=== PATIENT | female | born 1955 | race Caucasian/White ===

== ENCOUNTER 2023-02-10 21:21 | Emergency (ER) | payer MEDICARE, MEDICAID ==
[~2023-02-10] VITALS: Ht 157 cm; Wt 74.8 kg
--- NOTE | 2023-02-10 21:29 | ED General ---
General Stated Complaint: OVERDOSE History of Present Illness Date Seen by Provider: Feb 10, 2023 Time Seen by Provider: 21:24 Initial Comments 68 yr F with PMH of meth addiction/ drug induced Parkinson/ early dementia/ is brought in by EMS for a suspected drug overdose. Pt states she took 3 bottles of pills. Pt's reason is that she got in a fight with her son, and her son told her she cannot see her grand kids any longer, and she states that she does not want to live if she can't see her grandkids. Denies abdominal pain, chest pain, shortness of breath, dizziness, blurry vision, palpitations, diarrhea. Patient is able to answer all questions and follow all commands in the ER. I spoke with pt's son, Asad Trujillo, who reports all her PMH and states she is a meth addict and she has been delusional lately and has bizarre behavior, and refuses to get help and won't allow him to take her to see a psychiatrist or PCP. Son reports he has tried to help her but she refuses help, and he states she always does things for attention. Some states that his mother's house is overrun with cockroaches and is in a state of disarray and very dirty. For all these reasons he does not want his children to go to her house, until she receives help and cleans her home, and stopped using meth. (MARICRUZ SOLORIO MD) Allergies and Home Medications Allergies Coded Allergies: No Known Drug Allergies (Unverified , 02/10/23) Patient Home Medication List Home Medication List Reviewed: Yes (MARICRUZ SOLORIO MD) Review of Systems Review of Systems Constitutional: see HPI EENTM: no symptoms reported Respiratory: no symptoms reported Cardiovascular: no symptoms reported Gastrointestinal: no symptoms reported Genitourinary: no symptoms reported Musculoskeletal: no symptoms reported Skin: no symptoms reported Psychiatric/Neurological: See HPI, Emotional Problems Hematologic/Lymphatic: No Symptoms Reported Immunological/Allergic: no symptoms reported (MARICRUZ SOLORIO MD) Physical Exam Vital Signs Vital Signs - First Documented 02/10/23 02/11/23 21:21 00:10 Temp 37.0 Pulse 91 Resp 21 B/P (MAP) 155/96 (115) Pulse Ox 95 O2 Delivery Room Air O2 Flow Rate 2.00 (QUANG ASIF MD) Vital Signs Capillary Refill : (MARICRUZ SOLORIO MD) Height, Weight, BMI Height: '" Weight: lbs. oz. kg; BMI Method: General Appearance: No Apparent Distress, WD/WN, Other (Attention-seeking) HEENT: PERRL/EOMI, Normal ENT Inspection, Pharynx Normal Neck: Full Range of Motion Respiratory: Chest Non Tender, Lungs Clear, Normal Breath Sounds, No Accessory Muscle Use, No Respiratory Distress Cardiovascular: Regular Rate, Rhythm, No Edema Gastrointestinal: Normal Bowel Sounds, Non Tender, Soft Extremity: Normal Range of Motion Neurologic/Psychiatric: Alert, Oriented x3, No Motor/Sensory Deficits, Depressed Affect, Other (Suicidal ideation and patient keeps saying she wants to . Attention seeking) Skin: Normal Color (MARICRUZ SOLORIO MD) Progress/Results/Core Measures Suspected Sepsis SIRS Temperature: Pulse: Respiratory Rate: Laboratory Tests 02/10/23 21:49: White Blood Count 12.7H Blood Pressure / Mean: Laboratory Tests 02/10/23 21:49: Creatinine 0.82, Platelet Count 411H, Total Bilirubin 0.2 02/11/23 01:30: Creatinine 0.95 (MARICRUZ SOLORIO MD) Results/Orders Lab Results Laboratory Tests Test 02/10/23 21:30 02/10/23 21:49 02/11/23 01:30 Range/Units Urine Color YELLOW Urine Clarity CLOLUDY Urine pH 6.5 5-9 Urine Specific [place] 1.020 1.016-1.022 Urine Protein NEGATIVE NEGATIVE Urine Glucose (UA) NEGATIVE NEGATIVE Urine Ketones NEGATIVE NEGATIVE Urine Nitrite NEGATIVE NEGATIVE Urine Bilirubin NEGATIVE NEGATIVE Urine Urobilinogen 1.0 < = 1.0 MG/DL Urine Leukocyte Esterase 1+ H NEGATIVE Urine RBC (Auto) NEGATIVE NEGATIVE Urine RBC NONE /HPF Urine WBC 25-50 H /HPF Urine Crystals NONE /LPF Urine Bacteria LARGE H /HPF Urine Casts NONE /LPF Urine Mucus NEGATIVE /LPF Urine Culture Indicated YES Urine Opiates Screen NEGATIVE NEGATIVE Urine Oxycodone Screen NEGATIVE NEGATIVE Urine Methadone Screen NEGATIVE NEGATIVE Urine Propoxyphene Screen NEGATIVE NEGATIVE Urine Barbiturates Screen NEGATIVE NEGATIVE Ur Tricyclic Antidepressants Screen NEGATIVE NEGATIVE Urine Phencyclidine Screen NEGATIVE NEGATIVE Urine Amphetamines Screen NEGATIVE NEGATIVE Urine Methamphetamines Screen NEGATIVE NEGATIVE Urine Benzodiazepines Screen POSITIVE H NEGATIVE Urine Cocaine Screen NEGATIVE NEGATIVE Urine Cannabinoids Screen POSITIVE H NEGATIVE White Blood Count 12.7 H 4.3-11.0 10^3/uL Red Blood Count 4.01 3.80-5.11 10^6/uL Hemoglobin 8.5 L 11.5-16.0 g/dL Hematocrit 31 L 35-52 % Mean Corpuscular Volume 78 L 80-99 fL Mean Corpuscular Hemoglobin 21 L 25-34 pg Mean Corpuscular Hemoglobin Concent 27 L 32-36 g/dL Red Cell Distribution Width 23.6 H 10.0-14.5 % Platelet Count 411 H 130-400 10^3/uL Mean Platelet Volume 10.2 9.0-12.2 fL Immature Granulocyte % (Auto) 1 % Neutrophils (%) (Auto) 57 42-75 % Lymphocytes (%) (Auto) 31 12-44 % Monocytes (%) (Auto) 8 0-12 % Eosinophils (%) (Auto) 3 0-10 % Basophils (%) (Auto) 1 0-10 % Neutrophils # (Auto) 0.0 L 1.8-7.8 X 10^3 Lymphocytes # (Auto) 7.3 H 1.0-4.0 X 10^3 Monocytes # (Auto) 4.0 H 0.0-1.0 X 10^3 Eosinophils # (Auto) 1.0 H 0.0-0.3 10^3/uL Basophils # (Auto) 0.3 H 0.0-0.1 10^3/uL Immature Granulocyte # (Auto) 0.1 0.0-0.1 10^3/uL Sodium Level 143 143 135-145 MMOL/L Potassium Level 3.2 L 3.0 L 3.6-5.0 MMOL/L Chloride Level 104 109 H 98-107 MMOL/L Carbon Dioxide Level 25 23 21-32 MMOL/L Anion Gap 14 11 5-14 MMOL/L Blood Urea Nitrogen 7 8 7-18 MG/DL Creatinine 0.82 0.95 0.60-1.30 MG/DL Estimat Glomerular Filtration Rate 78 65 BUN/Creatinine Ratio 9 8 Glucose Level 129 H 72 70-105 MG/DL Calcium Level 9.1 7.8 L 8.5-10.1 MG/DL Corrected Calcium 9.4 8.5-10.1 MG/DL Magnesium Level 1.8 1.7 1.6-2.4 MG/DL Total Bilirubin 0.2 0.1-1.0 MG/DL Aspartate Amino Transf (AST/SGOT) 37 H 5-34 U/L Alanine Aminotransferase (ALT/SGPT) 17 0-55 U/L Alkaline Phosphatase 167 H 40-136 U/L Total Protein 7.4 6.4-8.2 GM/DL Albumin 3.6 3.2-4.5 GM/DL Salicylates Level < 0.3 L 5.0-20.0 MG/DL Acetaminophen Level < 10 L 10-30 UG/ML Serum Alcohol < 10 <10 MG/DL (QUANG ASIF MD) Medications Given in ED Current Medications Medications Dose Ordered Sig/Jia Route Start Time Stop Time Status Last Admin Dose Admin Sodium Chloride 1,000 ml @ ud STK-MED ONCE .ROUTE 02/10/23 22:52 02/10/23 22:55 DC 02/10/23 23:00 0 MLS/HR (QUANG ASIF MD) Vital Signs/I&O 02/10/23 02/11/23 02/11/23 21:21 00:10 00:35 Temp 37.0 Pulse 91 Resp 21 B/P (MAP) 155/96 (115) Pulse Ox 95 89 O2 Delivery Room Air Nasal Cannula Room Air O2 Flow Rate 2.00 (QUANG ASIF MD) Vital Signs/I&O Capillary Refill : (MARICRUZ SOLORIO MD) Progress Note : Progress Note 1. SUSPECTED OVERDOSE / SUICIDAL IDEATION: - CXR: normal - CBC: WBC is - 1:1 - NS IVF bolus STAT - UDS is positive for benzos and marijuana - s. ETOH/ s. acetaminophen/ s. salicylate is negative - ER nurse contacted Poison Control - Pt unlikely to have overdosed or taken any of the medications she has said she took. The reason being, the 3 pill bottles which inculde: Zolpidem 10mg hs (prescribed to be taken hs, with 30 tablets and prescribed on Nov 14), would have been finished in December, Escitalopram 20mg hs, (also prescribed to be taken hs, with 30 tablets and prescribed on Nov 14) would have been finished by now, and Clonezepam 1mg tid (prescribed to be taken tid, with 90 tablets and prescribed on Nov 14) would have been finished by now as well. Pt's complaints and report of overdose is not proportionate to her clinical signs and symptoms, and her normal vitals. Also to corroborate this story I have spoken to pt's son who also does not believe his mother overdosed, most especially since she has a [employer] which helped her with her medications, and also because she has not been going to the doctor to get refills. Pt's son wants her to go to a mental health facility and get drug rehab and mental health. - Psych screening: awaiting placement. 2. UTI: - UA is positive for LE, WBC, and bacteria - Lactic acid normal - Ceftriaxone 1gm iv STAT - IVF 3. HYPOKALEMIA: - s. K is 3.2 - iv Potassium 40mEq STAT with IVF 4. PROLONGED QTC: - 1st EKG showed a QTc of 499, and 2nd EKG shoowed a QTc 514 - iv Magnesium 2gm iv STAT - Albuterol neb STAT - 3rd EKG on 02/11/23 at 03:50, has a Vent rate of 82/min, and shows a QTc of 419, which is an improvement. (MARICRUZ SOLORIO MD) Progress Note : Progress Note Received the patient in signout pending placement. Reviewed the patient's chart, labs, EKG. I interviewed the patient, and she does still have passive suicidal ideation and given the attempt earlier, would still recommend inpatient admission. Reviewed [facility]'s recommendation which was [facility] psych placement. The patient has been medically cleared at this time, has been red tored for over 10 hours, showing no signs of sedation which would be the biggest concern with the medication she was on. She was treated appropriately for her UTI, and has received IV potassium already. I then contacted Dr. Ortiz, who admit the patient to the [facility] psych unit at [facility]. Update 09:45- [place] unable to fully accept patient until she has DPOA signed. I discussed what a DPOA was to the patient. I asked her who she would want to make decisions for her in the event that she was unable to make them. She identified her son, Asad Trujillo, as her DPOA. I called Asad to let him know the patient was agreeing to this. Patient then signed DPOA paperwork. At the time of signing it, she was alert and oriented, and she was able to voice back to me what she was signing and why she was signing it. (QUANG ASIF MD) ECG Initial ECG Impression Date: Feb 11, 2023 Initial ECG Impression Time: 21:56 Initial ECG Rate: 90 Initial ECG Rhythm: Normal Sinus Initial ECG Intervals: QT (Prolonged 451 QT and 499 QTc) Initial ECG Impression: Normal Initial ECG Comparisson: No Previous ECG Available EKG : EKG Time: 23:57 Rate: 81 Rhythm: Normal Sinus Intervals: QT ECG Comparisson: Changed Comment Prolonged QTc increased from first EKG (MARICRUZ SOLORIO MD) Diagnostic Imaging Diagonstic Imaging: Xray Plain Films/CT/US/NM/MRI: chest Comments [facility], [place] NAME: [facility] REC#: [id number] PT STATUS: REG ER : 1955 PHYSICIAN: MARICRUZ SOLORIO MD ADMIT DATE: 02/10/23/ER FS Signed Date of Exam:02/10/23 CHEST 1 VIEW AP/PA ONLY EXAMINATION: Chest 1 view HISTORY: suspected overdose COMPARISON: None available. FINDINGS: The lungs are clear without edema or pneumonia. No pleural effusion or pneumothorax. Heart size is normal. IMPRESSION: 1. Clear lungs. Dictated by: Dictated on workstation # [id number] Dict: 02/10/232158 Trans: 02/10/232158 [facility] [id number] Interpreted by: MIA ALANIZ MD Electronically signed by: MIA ALANIZ MD 02/10/232158 (MARICRUZ SOLORIO MD) Departure Impression Primary Impression: Suicidal overdose Qualified Codes: T50.902A - Poisoning by unspecified drugs, medicaments and biological substances, intentional self-harm, initial encounter Additional Impressions: UTI (urinary tract infection) Qualified Codes: N30.00 - Acute cystitis without hematuria Hypokalemia QT prolongation Disposition: 65 XFER TO PSYCH HOSP/UNIT Condition: Stable Admissions Decision to Admit/Date: Feb 11, 2023 Time/Decision to Admit Time: 07:00 (QUANG ASIF MD) Transfer Transfer Reason: Exceeds level of care (needs [facility]/psych) [place] [facility] [place]: [place] (QUANG ASIF MD) Departure-Patient Inst. Referrals: NO,LOCAL PHYSICIAN (PCP/Family) Primary Care Physician MARICRUZ SOLORIO MD Feb 10, 2023 21:29 QUANG ASIF MD Feb 11, 2023 07:46
[2023-02-10 21:36] LABS: BACTERIA,URINE LARGE /HPF; BILIRUBIN,URINE NEGATIVE (NEGATIVE); CLARITY,URINE CLOLUDY; COLOR,URINE YELLOW; GLUCOSE, URINE (UA) NEGATIVE (NEGATIVE); KETONES,URINE NEGATIVE (NEGATIVE); LEUKOCYTE ESTERASE ,URINE 1+ (NEGATIVE); NITRITE,URINE NEGATIVE (NEGATIVE); PH,URINE 6.5 (5-9); PROTEIN,URINE NEGATIVE (NEGATIVE); WBC,URINE 25-50 /HPF
[2023-02-10 21:42] LABS: AMPHETAMINE SCREEN, URINE NEGATIVE (NEGATIVE); BARBITURATE SCREEN URINE NEGATIVE (NEGATIVE); BENZODIAZEPINES SCREEN URINE POSITIVE (NEGATIVE); CANNABINOID SCREEN, URINE POSITIVE (NEGATIVE); COCAINE SCREEN URINE NEGATIVE (NEGATIVE); METHADONE STAT NEGATIVE (NEGATIVE); OPIATE SCREEN URINE NEGATIVE (NEGATIVE); OXYCODONE STAT NEGATIVE (NEGATIVE); PROPOXYPHENE STAT NEGATIVE (NEGATIVE); TRICYCLIC ANTIDEPRESSANTS SCRE NEGATIVE (NEGATIVE)
[2023-02-10 21:58] LABS: BASOPHILS # (AUTO) 0.3 10^3/uL (0.0-0.1); BASOPHILS % (AUTO) 1 % (0-10); EOSINOPHILS % (AUTO) 3 % (0-10); HEMATOCRIT 31 % (35-52); HEMOGLOBIN 8.5 g/dL (11.5-16.0); LYMPHOCYTES # (AUTO) 7.3 X 10^3 (1.0-4.0); LYMPHOCYTES % (AUTO) 31 % (12-44); MEAN CORPUSCULAR HEMOGLOBIN 21 pg (25-34); MEAN CORPUSCULAR HGB CONC 27 g/dL (32-36); MEAN CORPUSCULAR VOLUME 78 fL (80-99); MEAN PLATELET VOLUME 10.2 fL (9.0-12.2); MONOCYTES % (AUTO) 8 % (0-12); NEUTROPHILS % (AUTO) 57 % (42-75); PLATELET COUNT 411 10^3/uL (130-400); WHITE BLOOD COUNT 12.7 10^3/uL (4.3-11.0)
--- NOTE | 2023-02-10 22:01 | Diagnostic Imaging Report ---
EXAMINATION: Chest 1 view HISTORY: suspected overdose COMPARISON: None available. FINDINGS: The lungs are clear without edema or pneumonia. No pleural effusion or pneumothorax. Heart size is normal. IMPRESSION: 1. Clear lungs. Dictated by: Dictated on workstation # [id number]
[2023-02-10 22:13] LABS: ALANINE AMINOTRANSFERASE 17 U/L (0-55); ALBUMIN 3.6 GM/DL (3.2-4.5); ALKALINE PHOSPHATASE 167 U/L (40-136); BILIRUBIN,TOTAL 0.2 MG/DL (0.1-1.0); BUN/CREATININE RATIO 9; CALCIUM 9.1 MG/DL (8.5-10.1); CARBON DIOXIDE 25 MMOL/L (21-32); CHLORIDE 104 MMOL/L (98-107); CREATININE SERUM 0.82 MG/DL (0.60-1.30); GFR ESTIMATED 78; GLUCOSE 129 MG/DL (70-105); MAGNESIUM 1.8 MG/DL (1.6-2.4); POTASSIUM 3.2 MMOL/L (3.6-5.0); SODIUM 143 MMOL/L (135-145); TOTAL PROTEIN 7.4 GM/DL (6.4-8.2)
[2023-02-10] MEDS ORDERED: POTASSIUM CL 10MEQ/50ML IVPB 50 ML IV STA (22:15)
[2023-02-10] MEDS ORDERED: cefTRIAXone 1 GM PRE-MIX 50 ML IV STA (22:16)
[2023-02-10 22:22] LABS: ACETAMINOPHEN < 10 UG/ML (10-30); SALICYLATE < 0.3 MG/DL (5.0-20.0)
[2023-02-10] MEDS ORDERED: NS IV 1000 ML 1,000 ML ONE (22:52)
[2023-02-10] MEDS ORDERED: POTASSIUM CL 10MEQ/50ML IVPB 150 ML IV ONE (23:36)
[2023-02-10] MEDS: POTASSIUM CL 10MEQ/50ML IVPB 50 ML IV SCH ×2 (23:40→23:45)
[2023-02-11] MEDS ORDERED: MAGNESIUM 1 GM/100 ML IVPB 100 ML IV STA (00:12)
[2023-02-11] MEDS ORDERED: RT-ALBUTEROL SULF 2.5 MG/3 ML PRE-MIX VIAL INH STA (00:15)
[2023-02-11] MEDS ORDERED: NS IV 1000 ML 1,000 ML IV STA (00:16)
[2023-02-11] MEDS: POTASSIUM CL 10MEQ/50ML IVPB 50 ML IV SCH ×2 (00:22→01:05)
[2023-02-11 02:03] LABS: CALCIUM 7.8 MG/DL (8.5-10.1); CREATININE SERUM 0.95 MG/DL (0.60-1.30); MAGNESIUM 1.7 MG/DL (1.6-2.4)
[2023-02-11 12:25] VITALS: BP 127/65
== END 2023-02-11 12:25 ==
LOC: ER FS 21:26
DX: T50.902A Poisoning by unspecified drugs, medicaments and biological substances, intentional self-harm, initial encounter (principal); N39.0 Urinary tract infection, site not specified; E87.6 Hypokalemia; I45.81 Long QT syndrome; G20 Parkinson's disease; Z28.310 Unvaccinated for COVID-19
CPT/HCPCS: 36415 ×2; 51702; 71045; 80048; 80053; 80306; 81000; 83735 ×2; 85025; 87088; 87636; 93005 ×2; 94640; 99284; G0480 ×3; 80320; 80329; 87077

== ENCOUNTER → 2023-02-20 | Outpatient (CLI) | payer MEDICARE, MEDICAID ==
--- NOTE | 2023-02-20 16:58 | Diagnostic Imaging Report ---
EXAMINATION: Pelvis, single view. Left hip, 2 additional views. COMPARISON: January 21, 2023. HISTORY: 68-year-old female, left hip pain after fall. FINDINGS: The pubic symphysis is normally aligned as are the sacroiliac joints. The right hip is not dislocated. The left hip is not dislocated. There is no pronounced joint space loss of either hip or osteophyte formation. There is a lucency in the left inferior pubic ramus which may relate to a mildly displaced fracture. This is unchanged from the prior study. No additional potential fracture is identified. There are degenerative changes of the lower lumbar spine. IMPRESSION: 1. Redemonstrated probable nondisplaced fracture of the left inferior pubic ramus which is essentially unchanged since prior exam. CT pelvis without contrast to assess for possible additional fracture is is recommended. 2. No identified new and acute bony abnormality. Dictated by: Dictated on workstation # [id number]
== END ==
LOC: RAD FS 13:20
PROVIDERS: ATTEND Nurse Practitioner
DX: M25.552 Pain in left hip (principal)
CPT/HCPCS: 73502